=== PATIENT | female | born 1975 | race Caucasian/White ===

== ENCOUNTER 2019-07-17 09:29 | Outpatient (CLI) | payer MEDICAID ==
[~2019-07-17] VITALS: Ht 154.9 cm; Wt 44.5 kg
--- NOTE | ~2019-07-17 | HEMODYNAMI ---
PATIENT:LYNN WALTON MEDICAL RECORD: [id number] : 79 LOCATION:[facility] ADMISSION DATE: 07/17/19 Generatedon:07/17/201912:36 Patient name: LYNN WALTON Patient #: [id number] SSN: : Date of study: 07/17/2019 Page: Of Hemodynamic Procedure Report Patient Data Patient Demographics Procedure consent was obtained First Name: LYNN Gender: Female Last Name: ANTON : 1975 Middle Initial: KILLIAN Age: 44 year(s) Patient #: [id number] Race: Unknown Additional ID: [id number] Contact details [address]: [address] [place] [address] State: [place] City: [place] Zip code: [address] Past Medical History Allergies: No known allergies Admission Admission Data Admission Date: 07/17/2019 Admission Time: 9:29 Procedure Procedure Types Cath Procedure Peripheral Cath Diagnostic Procedure [place]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 Peripheral Procedures 4-Vessel 4 Vessel Carotid Arterio Arch Procedure Description Procedure Date Procedure Date: 07/17/2019 Procedure Start Time: 11:44 Procedure Staff Name Function Aaron Dewitt MD Performing Physician Fatoumata Duvall RT Company Manager Eliane Adams RN Nurse Stan Mckeon RT Scrub Procedure Data Cath Procedure Fluoroscopy Diagnostic fluoroscopy Total fluoroscopy Time: 6.8 time: 6.8 min min Diagnostic fluoroscopy Total fluoroscopy dose: 488 dose: 488 mGy mGy Contrast Material Contrast Material Type Amount (ml) Isovue 300 105 Entry Location Entry Primary Successful Side Size Upsize Upsize Entry Closure Succes sful Closure Location (Fr) 1 (Fr) 2 (Fr) Remarks Device Remarks Femoral Exoseal artery Diagnostic catheters Device Type Used For End Catheter Placement Merit ULTRA BOLUS FLUSH 5Fr 90CM catheter ([id number]) Merit Impress Ingram 5FR. 100CM catheter ([id number]) Procedure Medications Medication Administration Route Dosage Heparin Flush Bag added to field 2 bags (1000units/500ml NS) Lidocaine 1% added to field 20 Versed I.V. 1 mg Fentanyl I.V. 50 mcg Versed I.V. 1 mg Fentanyl I.V. 50 mcg Versed I.V. 1 mg Fentanyl I.V. 50 mcg Versed I.V. 1 mg Fentanyl I.V. 50 mcg Hemodynamics Rest Heart Rate: 74 (bpm) Snapshots Pre Cath Intra NCS Post Cath Vital Signs Time Heart Resp SPO2 etCO2 NIBP (mmHg) Rhythm Pain Sedation Rate (ipm) (%) (mmHg) Status Level (bpm) 11:27:19 77 9 100 29.2 125/108(118) NSR 0 (11) 9(A) , No pain 11:31:16 79 6 100 36.7 143/91(123) NSR 0 (11) 9(A) , No pain 11:35:24 77 8 100 36.7 137/80(111) NSR 0 (11) 9(A) , No pain 11:39:26 80 8 100 37.4 149/93(122) NSR 0 (11) 9(A) , No pain 11:43:32 88 6 100 32.9 141/90(120) NSR 0 (11) 9(A) , No pain 11:47:34 87 9 100 32.9 135/88(119) NSR 0 (11) 9(A) , No pain 11:51:35 76 9 100 36.6 148/89(114) NSR 0 (11) 9(A) , No pain 11:55:41 80 5 100 35.9 139/88(111) NSR 0 (11) 9(A) , No pain 11:59:42 87 10 100 38.9 141/92(120) NSR 0 (11) 9(A) , No pain 12:03:44 85 10 100 27.6 133/93(116) NSR 0 (11) 9(A) , No pain 12:07:46 85 11 100 30.6 136/88(115) NSR 0 (11) 9(A) , No pain 12:11:50 84 13 100 39.6 138/85(116) NSR 0 (11) 9(A) , No pain 12:15:51 84 12 100 35.9 142/93(116) NSR 0 (11) 9(A) , No pain 12:19:55 84 8 100 38.9 140/93(120) NSR 0 (11) 9(A) , No pain 12:23:59 84 10 100 31.4 135/87(121) NSR 0 (11) 9(A) , No pain 12:27:58 86 11 100 40.4 139/93(117) NSR 0 (11) 9(A) , No pain 12:32:00 83 18 100 35.1 145/98(120) NSR 0 (11) 9(A) , No pain 12:36:08 78 8 100 39.6 131/85(107) NSR 0 (11) 9(A) , No pain Medications Time Medication Route Dose Verified Delivered Reason Notes Effe ctiveness by by 11:26:43 Heparin Flush added 2 Aaron Walker used for Bag to bags Esdras Dewitt procedure (1000units/500ml field MD LUNA NS) 11:26:55 Lidocaine 1% added 20ml Aaron Walker for local to vial Esdras Dewitt anesthetic field MD LUNA 11:46:19 Versed I.V. 1 mg Aaron Del Rio for Esdras Reddr RN sedation 11:46:29 Fentanyl I.V. 50 Aaron Del Rio for mcg Esdras Bryan RN sedation 11:52:00 Versed I.V. 1 mg Aaron Del Rio for Esdras Bryan RN sedation 11:52:07 Fentanyl I.V. 50 Aaron Del Rio for mcg Esdras Bryan RN sedation 11:55:17 Versed I.V. 1 mg Aaron Del Rio for Esdras Bryan RN sedation 11:55:25 Fentanyl I.V. 50 Aaron Del Rio for mcg Esdras Bryan RN sedation 12:09:48 Versed I.V. 1 mg Aaron Del Rio for Esdras Bryan RN sedation 12:09:59 Fentanyl I.V. 50 Aaron Del Rio for mcg Esdras Bryan RN sedation Procedure Log Time Note 10:16:50 Use device set IR Diagnostic 10:16:53 Tegaderm 4 x 4 ([id number]) opened to sterile field. 10:16:55 Sterile Angiographic Pack opened to sterile field. 10:16:56 Bag Decanter (2001S) opened to sterile field. 10:16:57 ACIST Manifold (02269) opened to sterile field. 10:16:58 ACIST Hand Control (71762) opened to sterile field. 10:16:59 ACIST Syringe (44385) opened to sterile field. 10:17:44 Micropuncture VSI 4FR kit opened to sterile field. 10:17:47 BENTSON 145cm wire ([id number]) opened to sterile field. 10:17:48 TUBING Contrast Injection High Pressure (HKT298V) opened to sterile field. 10:17:49 SHEATH 5FR [place] (BIY230) opened to sterile field. 10:58:40 - 11:26:19 Vital chart was started 11:26:43 Heparin Flush Bag (1000units/500ml NS) 2 bags added to field was administered by Aaron Dewitt MD; used for procedure; Verbal order read back and verified. 11:26:55 Lidocaine 1% 20ml vial added to field was administered by Aaron edmondson MD; for local anesthetic; Verbal order read back and verified. 11:27:09 Time tracking: Regular hours (M-F 7:00 - 5:00) 11:28:13 Plan of Care:Hemodynamics will remain stable., Cardiac rhythm will remain stable., Comfort level will be maintained., Respiratory function will remain adequate., Patient/ family verbilizes understanding of procedure., Procedure tolerated without complication., Recovers from procedure without complications.. 11:28:19 Patient received from Outpatients to IR Alert and oriented. Tansferred to table in Supine position. 11:28:22 Signed procedure consent form obtained from patient. 11::23 Correct patient and procedure confirmed by team. 11:28:24 ECG and BP/O2 sat monitors applied to patient. 11:: Baseline sample Acquired. 11::27 Full Disclosure recording started 11:28:30 - 11:28:35 H&P Date Dictated: 07/17/2019 Within 30 days and on chart., H&P Addendu m completed by physician on day of procedure. (MUST COMPLETE FOR ALL OUTPATIENTS). 11:28:37 Pre-procedure instructions explained to patient. 11::38 Pre-op teaching completed and patient verbalized understanding. 11::39 Family in waiting room. ::41 Patient NPO since Midnight. 11::50 Patient allergic to No known allergies 11::54 Is the patient allergic to Iodine/contrast media? No. 11::57 Is patient on blood thinner?Yes, last dose yesterday 11:29:19 Patient diabetic? No. 11:29:21 - 11:29:22 ----Pre-sedation anethsthesia assessment.---- 11:29:25 Previous problem with sedation/anesthesia? No ? 11:29:31 Snore? No 11::38 Sleep apnea? No 11:31:12 Deviated septum? No 11:31:14 Opens mouth fully? Yes 11:31:16 Sticks out tongue? Yes 11:31:22 Airway obstruction? Yes AFIB 11:31:26 Dentures? No ? 11:31:37 Pre procedure: right dorsailis pedis pulse Doppler 11:31:41 Pre procedure: right posterior tibial pulse Doppler 11:31:48 IV patent on arrival in left forearm with D5/.45%NaCl at [facility]. 11:31:55 Right groin area was prepped with chlora-prep and draped in sterile fashion 11:31:56 - 11:32:02 Fire Safety Assessment: A--An alcohol-based skin anteseptic being used preoperatively., C--Open oxygen or nitrous oxide is being used. 11:32:09 2) 60-89 Mildly reduced kidney function, and other findings (as for stage 1) point to kidney disease. 11:34:07 Maximum allowable contrast dose (3.7 X eGFR X 0.75)202 ml. 11:42:20 A [employer] ULTRA BOLUS FLUSH 5Fr 90CM catheter ([id number]) was advanced over the wire and used for . 11:42:34 A [employer] Impress Ingram 5FR. 100CM catheter ([id number]) was advanced over the wire and used for . 11:43:00 Physician arrived 11:43:01 --------ALL STOP TIME OUT------ 11:43:03 Final Timeout: patient, procedure, and site verified with staff and physician. All members of the team are in agreement. 11:44:06 Procedure started. 11:44:12 Local anesthetic to right femoral artery with Lidocaine 1% by Aaron Dewitt MD.INITIAL ACCESS ONLY 11:46:19 Versed 1 mg I.V. was administered by Eliane Adams RN; for sedation; Verbal order read back and verified. 11:46:29 Fentanyl 50 mcg I.V. was administered by Eliane Adams RN; for sedation ; Verbal order read back and verified. 11:52:00 Versed 1 mg I.V. was administered by Eliane Adams RN; for sedation; Verbal order read back and verified. 11:52:07 Fentanyl 50 mcg I.V. was administered by Eliane Adams RN; for sedation ; Verbal order read back and verified. 11:55:17 Versed 1 mg I.V. was administered by Eliane Adams RN; for sedation; Verbal order read back and verified. 11:55:25 Fentanyl 50 mcg I.V. was administered by Eliane Adams RN; for sedation ; Verbal order read back and verified. 12:09:48 Versed 1 mg I.V. was administered by Eliane Adams RN; for sedation; Verbal order read back and verified. 12:09:59 Fentanyl 50 mcg I.V. was administered by Eliane Adams RN; for sedation ; Verbal order read back and verified. 12:26:14 A sheath was inserted into the Femoral artery 12:26:14 Sheath removed intact; hemostasis achieved with Exoseal to the Femoral artery. 12:27:01 EXOSEAL 5Fr (EX500) opened to sterile field. 12:27:06 Procedure ended.(Physican Out) 12:27:28 Fluoroscopy time 06.80 minutes. 12:27:35 Flurop Dose total: 488 12:27:35 Fluoroscopy dose: 488 mGy 12:27:40 Contrast amount:Isovue 300 105ml. 12:34:57 Procedure and supply charges have been captured, reviewed, submitted an d are correct. 12:36:16 Report given to Outpatients. 12:36:42 Vital chart was stopped Device Usage Item Name Manufacture Quantity Catalog Number Hospital Part Current [facility] Lot# / Charge Number Stock Stock Serial# Code Tegaderm 4 x 4 3M 1 [id number] 5 (1626W) Sterile Cardinal 1 [id number] 167149 354222 5 Angiographic Health Pack Bag Decanter Microtek 1 2001S 680284 89883 202462 5 (2002S) Medical Inc[employer] ACIST Manifold Acist 1 97452 156866 224881 095559 5 (76853) [employer] Inc ACIST Hand Acist 1 81115 995975 332177 813000 5 Control Medical (93935) Systems Inc ACIST Syringe Acist 1 73079 708742 884131 499919 20 (02269) [employer] Systems [employer] Micropuncture VSI VASCULAR 1 7266V 307012 206989 5 VSI 4FR kit SOLUTIONS BENTSON 145cm [employer] 1 [id number] 835375 271908 5 wire ([id number]) TUBING Merit 1 [id number] 032230 805077 022118 5 Contrast Medical Injection High Pressure ([id number]) SHEATH 5FR Terumo 1 [id number] 087343 711467 587595 5 [place] (AXQ853) Merit ULTRA Merit 1 [id number] 334625 736608 5 BOLUS FLUSH Medical 5Fr 90CM catheter ([id number]) Merit Impress Merit 1 [id number] 719419 710608 5 Ingram 5FR. Medical 100CM catheter ([id number]) EXOSEAL 5Fr Cardinal 1 EX500 033687 925419 978821 10 (EX500) Health Signature Audit [place] Stage Time Signature Unsigned Intra-Procedure 07/17/2019 Fatoumata Duvall 12:36:38 PM RT(R) [facility] [address] [place] [address]
[2019-07-17 09:59] LABS: BASOPHILS 0.1 % (0-2); EOSINOPHILS 0.3 % (0-7); HEMATOCRIT 46.4 % (36.0-48.0); HEMOGLOBIN 15.8 g/dL (12-16); IMMATURE GRANULOCYTES 0.3 % (0-5); LYMPHOCYTES 12.6 % (15-50); MCH 33.2 pg (26.0-34.0); MCHC 34.1 g/dL (31.0-37.0); MCV 97.5 fL (80.0-100.0); MEAN PLATELET VOLUME 10.4 fL (7.4-10.4); MONOCYTES 3.6 % (2-11); NEUTROPHILS 83.1 % (40-80); RBC 4.76 10x6/uL (4.00-5.40); RDW 13.2 % (11.5-14.5); WBC 16.3 10x3/uL (4.8-10.8)
[2019-07-17 10:01] LABS: PLATELET COUNT 236 10x3/uL (130-400)
[2019-07-17 10:06] LABS: ANION GAP 14.7 mmol/L (8-16); CREATININE - SERUM 0.9 mg/dL (0.6-1.3); POTASSIUM - SERUM 4.7 mmol/L (3.5-5.1)
[2019-07-17 10:12] LABS: APTT 33.8 SECONDS (22.8-39.4)
[2019-07-17 10:44] LABS: INR 1.01 (0.85-1.17); PROTIME 12.8 SECONDS (11.6-15.0)
[2019-07-17 10:48] VITALS: BP 149/82; Ht 154.9 cm; Wt 44.5 kg
--- NOTE | 2019-07-17 15:24 | NUR ---
1250-REC'D FROM SPECIALS. AWAKE AND ALERT,VERY ANXIOUS.VSS.DRESSING TO GROIN CDI. STRONG REGULAR PEDAL PULSE.
--- NOTE | 2019-07-17 15:25 | NUR ---
1326-ADMINISTERED HOME MED FOR ANXIETY-CLONAZEPAM 1MG BY MOUTH.
--- NOTE | 2019-07-17 15:26 | NUR ---
1400-PT VOMITING X 1. VSS. NO OTHER SYMPTOMS.
--- NOTE | 2019-07-17 15:26 | NUR ---
1414-PER ORDERS ADMINISTERED VALIUM 10MG BY MOUTH FOR ANXIETY. DENIES NAUSEA. VSS.
--- NOTE | 2019-07-17 15:53 | NUR ---
1530-NO NAUSEA OR VOMITING,VSS.DENIES PAIN.DRESSING TO LEFT GROIN CDI, NO HEMATOMA.FINGER FOOD TRAY TO ROOM.
== END 2019-07-17 16:30 | disposition home or self-care (01) ==
LOC: D.OPS 09:29 → D.SP 10:00 → D.OPS 16:30
PROVIDERS: Radiology Diagnostic Radiology; ATTEND Thoracic Surgery (Cardiothoracic Vascular Surgery)
DX: I65.22 Occlusion and stenosis of left carotid artery (principal)